=== PATIENT | female | born 1960 | race Caucasian/White ===

== ENCOUNTER → 2019-10-22 | Outpatient (CLI) | payer MEDICARE ==
--- NOTE | 2019-10-26 11:17 | MM ---
Reason for exam: screening (asymptomatic). Last mammogram was performed 1 year and 8 months ago. History: Patient is postmenopausal. Family history of breast cancer in mother at age 80 and breast cancer in maternal grandmother at age 50. Benign stereotactic core biopsy of the right breast, 2001. Physical Findings: A clinical breast exam by your physician is recommended on an annual basis and results should be correlated with mammographic findings. MG Screening Mammo w CAD Bilateral CC and MLO view(s) were taken. Prior study comparison: February 27, 2018, mammogram, performed at [place]. December 17, 2016, mammogram, performed at [place]. December 02, 2016, mammogram, performed at [place]. The breast tissue is almost entirely fat. There are benign appearing round calcifications bilaterally. Previous mammotome biopsy in the right breast. There is chronic nodularity in the right breast. There is chronic nodularity in the left axilla, presumed benign lymph nodes, stable. There is no discrete abnormality. ASSESSMENT: Benign, BI-RAD 2 RECOMMENDATION: Routine screening mammogram of both breasts in 1 year.
== END | disposition home or self-care (01) ==
LOC: RADMAMWWP 14:42
PROVIDERS: ATTEND Physician Assistant
DX: Z12.31 Encounter for screening mammogram for malignant neoplasm of breast (principal)
CPT/HCPCS: 77067

== ENCOUNTER → 2019-11-02 | Outpatient (CLI) | payer MEDICARE ==
[2019-11-02 13:10] VITALS: BP 121/79; PULSE 77; RESP 18; TEMP 98.1
--- NOTE | 2019-11-02 14:13 | P.HPOB ---
History of Present Illness H&P Date: 11/02/19 Chief Complaint: The patient is here for her routine gynecologic exam. This is a 59-year-old with an LMP of 2013. The patient is here to establish with this office. She states it has been about 2-3 years since her last pelvic exam. She is without gynecologic complaints and denies any postmenopausal bleeding. Review of Systems The patient has lost about 100 pounds since her gastric bypass surgery in 2017. This has been intentional. She denies respiratory or cardiac problems. GI: Occasional gastric reflux symptoms. Past Medical History Past Medical History: GERD/Reflux, Hyperlipidemia, Thyroid Disorder Additional Past Medical History / Comment(s): Hypothyroidism, bone spurs, neuropathy. She had hypertension and prediabetes improved with weight loss. 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 History of Any Multi-Drug Resistant Organisms: None Reported Past Surgical History: Bariatric Surgery, Breast Surgery, Section, Cholecystectomy Additional Past Surgical History / Comment(s): 2 sections, gastric sleeve surgery and breast biopsy. Colonoscopy 2019(next 5yrs). Past Psychological History: No Psychological Hx Reported Smoking Status: Never smoker Past Alcohol Use History: None Reported Additional Past Alcohol Use History / Comment(s): History of alcohol heavier use and she quit at age 23. Past Drug Use History: None Reported Additional History: She has been since 2014 and this is her second marriage. 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 - Past Family History Mother Family Medical History: Cancer Additional Family Medical History / Comment(s): Breast cancer in 80s. Maternal grandmother also had breast cancer. Father Family Medical History: Diabetes Mellitus Additional Family Medical History / Comment(s): Several grandparents had hypertension and heart disease. Medications and Allergies Home Medications Medication Instructions Recorded Confirmed Type Atorvastatin [Lipitor] 20 mg PO DAILY 11/02/19 11/02/19 History Cetirizine HCl 10 mg PO DAILY 11/02/19 11/02/19 History Famotidine 20 mg PO BID 11/02/19 11/02/19 History Krill/[place]-3/Dha/Epa/Lipids 1 each PO DAILY 11/02/19 11/02/19 History [Krill Oil 350 mg Softgel] Levothyroxine Sodium [Synthroid] 50 mcg PO DAILY 11/02/19 11/02/19 History Pedi Multivit No.25/Folic Acid 1 tab PO DAILY 11/02/19 11/02/19 History [Flintstones Multivit Chew Tab] Ubidecarenone [Co Q-10] 100 mg PO DAILY 11/02/19 11/02/19 History Vitamin C/Biotin [Hair, Skin and 3 tab PO DAILY 11/02/19 11/02/19 History Nails] diphenhydrAMINE [Benadryl] 25 mg PO HS PRN 11/02/19 11/02/19 History Allergies Allergy/AdvReac Type Severity Reaction Status Date / Time Melon Allergy Unknown Unverified 11/02/19 13:15 Exam Vital Signs Temp Pulse Resp BP Pulse Ox 11/02/19 13:04 98.1 F 77 18 121/79 99 Intake and Output 11/01/19 11/02/19 11/02/19 22:59 06:59 14:59 Other: Weight 95.708 kg Height 5 feet 0 inches, weight 211 pounds, BMI 41.2. This is a well-developed well-nourished heavyset white female who is alert and oriented times 3 in no acute distress. HEENT: Within normal limits. NECK: Supple without mass or thyromegaly. CHEST AND LUNGS: Clear to auscultation. HEART: Regular rate and rhythm. BREASTS: Are without mass or discharge. AXILLARY EXAM: Negative for adenopathy. BACK: Negative for CVA tenderness. ABDOMEN: Soft, nontender, without palpable masses. PELVIC EXAM: Normal external genitalia with mild atrophy. Cervix and vagina appear normal of mild atrophy. There is no unusual discharge. There is no evidence of prolapse. The uterus is midposition to anterior, nongravid size and nontender. There are no palpable adnexal masses or tenderness. RECTAL EXAM: Active vaginal exam is negative for mass or tenderness and is negative for occult blood. EXTREMITIES: Nontender. IMPRESSION: 1. 59-year-old menopausal female with normal gynecologic exam PLAN: 1. Pap smear was performed. 2. Self breast awareness was discussed with the patient. 3. Screening mammogram was done on 10/26/2019 and was benign. 4. Osteoporosis prevention was discussed. I have stressed the importance of adequate calcium, vitamin D and regular exercise. Recommended amounts of calcium and vitamin D were also discussed. Bone density testing will be done today. This will be her first bone density test. 5. She was advised to return in one year for her annual well woman exam.
--- NOTE | 2019-11-10 14:40 | P.PN ---
Progress Note - Text Progress Note Date: 11/10/19 OUTPATIENT FOLLOW-UP NOTE TEST(S)/RESULTS: Test results from 11/02/2019 include negative Pap smear and normal bone density test. METHOD OF NOTIFICATION: The patient was notified by phone. PATIENT COMMENTS: She is happy to hear these results. DIAGNOSIS: Negative Pap smear and normal bone density testing. DISCUSSION: PLAN: She was advised to return in one year for her annual well woman exam.
== END | disposition home or self-care (01) ==
LOC: WWCWWP 12:54
PROVIDERS: ATTEND Obstetrics & Gynecology
DX: Z53.9 Procedure and treatment not carried out, unspecified reason (principal)

== ENCOUNTER → 2019-11-02 | Outpatient (CLI) | payer MEDICARE ==
--- NOTE | 2019-11-02 16:04 | BD ---
EXAMINATION TYPE: Axial Bone Density DATE OF EXAM: 11/02/2019 COMPARISON: NONE CLINICAL HISTORY: Postmenopausal female Height: 59.5 IN Weight: 207 LBS RISK FACTORS HISTORY OF: Family History of Osteoporosis: YES MOTHER Active: YES Diet low in dairy products/other sources of calcium: YES Postmenopausal woman: AGE 54 MEDICATIONS: Thyroid Medications: YES Which medication: Levothyroxine How Lon+ YEARS Additional Medications: LEVOTHYROXINE, HAIR NAIL SKIN , FLINTSTONES COMPLETE, KRILL OIL, COQ10, ATORV ASTATIN, PEPCID, EXAM MEASUREMENTS: Bone mineral densitometry was performed using the [employer] System. Bone mineral density as measured about the Lumbar spine is: ----- L1-L4(G/cm2): 1.418 T Score Values are as follows: ----- L2: 1.5 ----- L3: 1.8 ----- L4: 2.2 ----- L1-L4: 2.0 Bone mineral density BASELINE Bone mineral density about the R hip (g/cm2): 1.161 Bone mineral density about the L hip (g/cm2): 1.107 T Score values are as follows: -----R Neck: 0.9 -----L Neck: 0.5 -----R Total: 2.0 -----L Total: 1.9 Bone mineral density BASELINE IMPRESSION: Normal (Values between +1 and -1 indicate normal bone mass). Consider repeating this study in 5 year s or sooner if there is some new clinical indication. NOTE: T-SCORE=SD OF THE YOUNG ADULT MEAN.
== END | disposition home or self-care (01) ==
LOC: RADBDWWP 12:53
PROVIDERS: ATTEND Family Medicine
DX: M85.80 Other specified disorders of bone density and structure, unspecified site (principal); Z78.0 Asymptomatic menopausal state
CPT/HCPCS: 77080; 82270

== ENCOUNTER → 2021-01-16 | Outpatient (CLI) | payer MEDICARE ==
--- NOTE | 2021-01-18 14:36 | MM ---
Reason for exam: screening (asymptomatic). Last mammogram was performed 1 year and 3 months ago. History: Patient is postmenopausal. Family history of breast cancer in mother at age 80 and breast cancer in maternal grandmother at age 50. Benign stereotactic core biopsy of the right breast, 2001. Physical Findings: A clinical breast exam by your physician is recommended on an annual basis and results should be correlated with mammographic findings. MG 3D Screening Mammo W/Cad Bilateral CC and MLO view(s) were taken. XCCL view(s) were taken of the left breast. Prior study comparison: October 22, 2019, bilateral MG screening mammo w CAD. February 27, 2018, mammogram, performed at [place]. There are scattered fibroglandular densities. Previous mammotome biopsy in the right breast. There is chronic nodularity bilaterally. No significant changes when compared with prior studies. ASSESSMENT: Negative, BI-RAD 1 RECOMMENDATION: Routine screening mammogram of both breasts in 1 year.
== END | disposition home or self-care (01) ==
LOC: RADMAMWWP 14:16
PROVIDERS: ATTEND Family Medicine
DX: Z12.31 Encounter for screening mammogram for malignant neoplasm of breast (principal); Z80.3 Family history of malignant neoplasm of breast; Z98.84 Bariatric surgery status
CPT/HCPCS: 77063; 77067

== ENCOUNTER → 2022-05-24 | Outpatient (CLI) | payer MEDICARE ==
--- NOTE | 2022-05-28 07:53 | MM ---
Reason for Exam: Screening (asymptomatic). Last mammogram was performed 1 year(s) and 5 month(s) ago. Patient History: Menarche at age 10. First Full-Term at age 23. Postmenopausal. 2001, Benign Stereotactic Core Biopsy on the right side. Maternal grandmother had breast cancer, age 50. Mother had breast cancer, age 80. Risk Values: Chiquita 5 year model risk: 3.7%. NCI Lifetime model risk: 14.4%. Prior Study Comparison: 02/27/2018 Screening Mammogram, [place]. 10/22/2019 Bilateral Screening Mammogram, [facility]. 01/16/2021 Bilateral Screening Mammogram, [facility]. Tissue Density: There are scattered fibroglandular densities. Findings: Analyzed By CAD. There is no suspicious group of microcalcifications or new suspicious mass in either breast. Overall Assessment: Negative, BI-RAD 1 Management: Screening Mammogram of both breasts in 1 year. A clinical breast exam by your physician is recommended on an annual basis and results should be correlated with mammographic findings. Electronically signed and approved by: Reginald Rodriguez M.D. Radiologis
== END | disposition home or self-care (01) ==
LOC: RADMAMWWP 13:03
PROVIDERS: ATTEND Family Medicine
DX: Z12.31 Encounter for screening mammogram for malignant neoplasm of breast (principal); Z80.3 Family history of malignant neoplasm of breast; Z78.0 Asymptomatic menopausal state
CPT/HCPCS: 77063; 77067

== ENCOUNTER → 2023-06-27 | Outpatient (CLI) | payer MEDICARE ==
--- NOTE | 2023-06-30 15:31 | MM ---
Reason for Exam: Screening (asymptomatic). Last mammogram was performed 1 year(s) and 1 month(s) ago. Patient History: Menarche at age 10. First Full-Term at age 23. Postmenopausal. Patient has history of breast feeding. 2002, Benign Stereotactic Core Biopsy on the right side. Maternal grandmother had breast cancer, age 50. Mother had breast cancer, age 80. Risk Values: Chiquita 5 year model risk: 3.8%. NCI Lifetime model risk: 14.0%. Prior Study Comparison: 10/22/2019 Bilateral Screening Mammogram, [facility]. 01/16/2021 Bilateral Screening Mammogram, [facility]. 05/24/2022 Bilateral MG 3D screening mammo w/cad, [facility]. Tissue Density: There are scattered fibroglandular densities. Findings: Analyzed By CAD. Pattern appears symmetrical and stable. Multiple lymph nodes appear to be in the axillary regions. Intramammary lymph node may be in the axillary tail. No significant interval change is evident. Core marker is within the right breast. Chronic nodularity is within the mid right breast. No suspicious groups of microcalcifications, spiculated or lobular masses, architectural distortion or other secondary signs of malignancy are mammographically apparent. Overall Assessment: Benign, BI-RAD 2 Management: Screening Mammogram of both breasts in 1 year. A negative mammogram report should not preclude additional follow up of suspicious palpable abnormalities. Patient should continue monthly self breast exam. A clinical breast exam by your physician is recommended on an annual basis and results should be correlated with mammographic findings. Electronically signed and approved by: Sundar Toribio D.O. Radiologis
== END | disposition home or self-care (01) ==
LOC: RADMAMWWP 13:03
PROVIDERS: ATTEND Family Medicine
DX: Z12.31 Encounter for screening mammogram for malignant neoplasm of breast (principal); Z78.0 Asymptomatic menopausal state; Z80.3 Family history of malignant neoplasm of breast
CPT/HCPCS: 77063; 77067

== ENCOUNTER → 2024-06-29 | Outpatient (CLI) | payer MEDICARE ==
--- NOTE | 2024-07-27 09:01 | MM ---
Reason for Exam: Screening (asymptomatic). Last screening mammogram was performed 12 month(s) ago. Patient History: Menarche at age 10. First Full-Term at age 23. Postmenopausal. Patient has history of breast feeding. 2001, Benign Stereotactic Core Biopsy on the right side. Maternal grandmother had breast cancer, age 50. Mother had breast cancer, age 80. Risk Values: Chiquita 5 year model risk: 3.9%. NCI Lifetime model risk: 13.5%. Prior Study Comparison: 01/16/2021 Bilateral Screening Mammogram, [facility]. 05/24/2022 Bilateral MG 3D screening mammo w/cad, [facility]. 06/27/2023 Bilateral MG 3D screening mammo w/cad, [facility]. Tissue Density: The breasts are almost entirely fatty. Findings: Analyzed By CAD. Right breast: There is no suspicious group of microcalcifications or new suspicious mass. Left breast: There is no suspicious group of microcalcifications or new suspicious mass. Overall Assessment: Negative, BI-RAD 1 Management: Screening Mammogram of both breasts in [address] [facility] will attempt to contact patient to return for supplemental views and ultrasound if indicated. Patient should continue monthly self-breast exams. A clinical breast exam by your physician is recommended on an annual basis. This exam should not preclude additional follow-up of suspicious palpable abnormalities. Note on Chiquita scores and lifetime risk: 1. A Chiquita score greater than 3% is considered moderate risk. If this is the case, consider specialist referral to assess eligibility for a risk reducing agent. 2. If overall lifetime risk for the development of breast cancer is 20% or higher, the patient may qualify for future screening with alternating mammogram and breast MRI. Electronically signed and approved by: Sterling Cifuentes DO
== END | disposition home or self-care (01) ==
LOC: RADMAMWWP 09:42
PROVIDERS: ATTEND Family Medicine
DX: Z12.31 Encounter for screening mammogram for malignant neoplasm of breast (principal); Z78.0 Asymptomatic menopausal state; Z80.3 Family history of malignant neoplasm of breast
CPT/HCPCS: 77067; 85610; 85730

== ENCOUNTER 2024-08-30 09:31 | Day surgery (SDC) | payer MEDICARE ==
--- NOTE | 2024-08-30 07:03 | P.GSHP ---
History of Present Illness H&P Date: 08/30/24 CHIEF COMPLAINT: GERD and colon screen HISTORY OF PRESENT ILLNESS: The patient is a 65-year-old female who presents with gastroesophageal reflux disease and need for colon screen. Upper and lower endoscopy were offered for further evaluation and management. PAST MEDICAL HISTORY: Please see list. PAST SURGICAL HISTORY: Please see list. MEDICATIONS: Please see list. ALLERGIES: Please see list. SOCIAL HISTORY: No illicit drug use FAMILY HISTORY: No reports of Crohn disease or ulcerative colitis. REVIEW OF ORGAN SYSTEMS: CONSTITUTIONAL: No reports of fevers or chills. GI: Denies any blood in stools or constipation. PHYSICAL EXAM: VITAL SIGNS: Stable GENERAL: Well-developed pleasant in no acute distress. HEENT: No scleral icterus. Extraocular movements grossly intact. Moist buccal mucosa. NECK: Supple without lymphadenopathy. CHEST: Unlabored respirations. Equal bilateral excursions. CARDIOVASCULAR: Regular rate and rhythm. Distal 2+ pulses. ABDOMEN: Soft, nondistended. MUSCULOSKELETAL: No clubbing, cyanosis, or edema. ASSESSMENT: 1. Gastroesophageal reflux disease 2. Colon screen. PLAN: 1. Recommend proceeding with an upper and lower endoscopy Past Medical History Past Medical History: GERD/Reflux, Hyperlipidemia, Skin Disorder, Thyroid Disorder Additional Past Medical History / Comment(s): Hashimotos Hypothyroidism, bone spurs, neuropathy. She had hypertension and prediabetes improved with weight loss. 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 childhood asthma, itchy bumps contact dermatitis unknown cause History of Any Multi-Drug Resistant Organisms: None Reported Past Surgical History: Bariatric Surgery, Breast Surgery, Section, Cholecystectomy Additional Past Surgical History / Comment(s): 2 sections, gastric sleeve surgery and breast biopsy. Colonoscopy 2019(next 5yrs). egd, Past Anesthesia/Blood Transfusion Reactions: No Reported Reaction Smoking Status: Never smoker - Past Family History Mother Family Medical History: Cancer Additional Family Medical History / Comment(s): Breast cancer in 80s. Maternal grandmother also had breast cancer. Father Family Medical History: Diabetes Mellitus Additional Family Medical History / Comment(s): Several grandparents had hypertension and heart disease. Medications and Allergies Home Medications Medication Instructions Recorded Confirmed Type Atorvastatin [Lipitor] 20 mg PO DAILY 11/02/19 08/26/24 History Cetirizine HCl 10 mg PO DAILY 11/02/19 08/26/24 History Krill/[place]-3/Dha/Epa/Lipids 1 each PO DAILY 11/02/19 08/26/24 History [Krill Oil 350 mg Softgel] Levothyroxine Sodium [Synthroid] 88 mcg PO DAILY 11/02/19 08/26/24 History Ubidecarenone [Co Q-10] 100 mg PO DAILY 11/02/19 08/26/24 History Biotin [Bxhj-Dihm-Fioqb] 10,000 mcg PO DAILY 06/23/24 08/26/24 History Cholecalciferol (Vitamin D3) 100 mcg PO DAILY 06/23/24 08/26/24 History [Vitamin D3 (50 Mcg = 2000 Iu)] Gabapentin 600 mg PO HS 06/23/24 08/26/24 History Sucralfate [Carafate] 1 gm PO TID 06/23/24 08/26/24 History Allergies Allergy/AdvReac Type Severity Reaction Status Date / Time Melon Allergy Unknown Unverified 08/26/24 08:48
[2024-08-30 09:53] VITALS: RESP 16; TEMP 97.7
[2024-08-30] MEDS: IV FLUID CONTINUATION 1,000 ML IV ONE (10:05)
[2024-08-30] MEDS: LACTATED RINGERS 1,000 ML IV SCH (10:11)
[2024-08-30] MEDS: LIDOCAINE 1% (10MG/ML) FOR IV START INTRADERMA PRN (10:11)
[2024-08-30] MEDS ORDERED: PROPOFOL 10 MG/ML 20 ML VIAL IV ONE (10:36)
[2024-08-30] MEDS ORDERED: LIDOCAINE 2% (PF) 20 MG/ML 5 ML VIAL ONE (10:36)
[2024-08-30 11:28] VITALS: BP 134/65; PULSE 71
--- NOTE | 2024-08-30 18:20 | P.PCN ---
Date of Procedure: 08/30/24 Description of Procedure: PREOPERATIVE DIAGNOSIS: Dysphagia Status post sleeve gastrectomy. Gastroesophageal reflux disease. POSTOPERATIVE DIAGNOSIS: Dysphagia Status post sleeve gastrectomy. Gastroesophageal reflux disease. Erosive esophagitis, chronic. Chronic superficial gastritis. OPERATION: Esophagogastroduodenoscopy with cold forceps biopsies along the esophagus, duodenum and antrum. SURGEON: Linda Quiroz MD ANESTHESIA: MAC. INDICATIONS: The patient is a 64-year-old female who presents with a history of sleeve gastrectomy with gastroesophageal reflux disease and dysphagia. She is over 5 years out from her bariatric procedure. Benefits and risks of the procedure were described. Informed consent was obtained. DESCRIPTION: The patient was brought into the endoscopy suite and laid in the left lateral decubitus position. An Olympus gastroscope was passed along the posterior oropharynx down to the distal esophagus where the squamocolumnar junction was at 37 centimeters from the incisors remarkable for chronic erosive esophagitis, LA grade C without ulceration. The sleeve reservoir was within normal limits allowing retroflexion of the scope. Chronic gastritis was found along the antrum with cold biopsies obtained. The first through third portion of the duodenum was examined with biopsies obtained. The stomach was desufflated. The patient tolerated the procedure well. FINDINGS: No acute ulceration found along her sleeve. No corkscrewing sleeve gastrectomy. Squamocolumnar junction at 37 cm from the incisors. Gastric reservoir with prior history of sleeve gastrectomy within normal limit LA grade C erosive esophagitis. Biopsies obtained Biopsies obtained of the duodenum Chronic gastritis with biopsies obtained. RECOMMENDATIONS: Recommend esophagram to identify residual hiatal hernia including dysmotility Start omeprazole 40 mg daily for 2 weeks Repeat upper endoscopy with possible dilation for dysphagia not refractory to medical treatment
--- NOTE | 2024-08-30 18:22 | P.PCN ---
Date of Procedure: 08/30/24 Description of Procedure: PREOPERATIVE DIAGNOSIS: Personal history of colon polyp Colonoscopy screening. POSTOPERATIVE DIAGNOSIS: Colonoscopy screening. Diverticulosis, scattered. OPERATION: Colonoscopy to the cecum, ileocecal valve and appendiceal orifice. SURGEON: Linda Quiroz MD. ANESTHESIA: MAC. INDICATIONS: The patient is a 64-year-old female who presents for colonoscopy screening. Last colonoscopy 5 years. Benefits and risks were described and informed consent was obtained. DESCRIPTION OF PROCEDURE: The patient had undergone Suprep. The patient had been brought into the operating room and laid in the left lateral decubitus position. After adequate intravenous sedation, the rectum was examined with 2% lidocaine jelly. External hemorrhoids were encountered. The rectal tone was within normal limits. No lesions were palpated in the rectal vault. An Olympus colonoscope was advanced until the cecum, ileocecal valve and appendiceal orifice were clearly viewed. The prep was fair with residual opacified liquid stool. Scattered diverticulosis was encountered. No colonic polyps were found. No evidence of focal colitis was found. Retroflexion of the scope demonstrated grade 1 internal hemorrhoids without active bleeding or inflammation. The colon was desufflated. The patient had tolerated the procedure well. Withdrawal time was over 6 minutes. FINDINGS: Aronchick preparation quality scale 2+ (1-5) Internal hemorrhoids, grade 1 External prolapsed hemorrhoids, grade 1 No arteriovenous malformations. No adenomatous polyps. No focal colitis. Scattered sigmoid diverticulosis without diverticulitis RECOMMENDATIONS: Lower endoscopy in 5 years, 2028 Recommend 2-day prep Plan - Discharge Summary Discharge Rx Participant: No New Discharge Prescriptions: New Omeprazole [PriLOSEC] 40 mg PO DAILY #14 cap Continue Cetirizine HCl 10 mg PO DAILY Levothyroxine Sodium [Synthroid] 88 mcg PO DAILY Atorvastatin [Lipitor] 20 mg PO DAILY Ubidecarenone [Co Q-10] 100 mg PO DAILY Krill/[place]-3/Dha/Epa/Lipids [Krill Oil 350 mg Softgel] 1 each PO DAILY Biotin [Hofm-Jfrk-Etbmg] 10,000 mcg PO DAILY Sucralfate [Carafate] 1 gm PO TID Cholecalciferol (Vitamin D3) [Vitamin D3 (50 Mcg = 2000 Iu)] 100 mcg PO DAILY Gabapentin 600 mg PO HS Discharge Medication List Atorvastatin [Lipitor] 20 mg PO DAILY 11/02/19 [History] Cetirizine HCl 10 mg PO DAILY 11/02/19 [History] Krill/[place]-3/Dha/Epa/Lipids [Krill Oil 350 mg Softgel] 1 each PO DAILY 11/02/19 [History] Levothyroxine Sodium [Synthroid] 88 mcg PO DAILY 11/02/19 [History] Ubidecarenone [Co Q-10] 100 mg PO DAILY 11/02/19 [History] Biotin [Vnid-Qlgx-Kglds] 10,000 mcg PO DAILY 06/23/24 [History] Cholecalciferol (Vitamin D3) [Vitamin D3 (50 Mcg = 2000 Iu)] 100 mcg PO DAILY 06/23/24 [History] Gabapentin 600 mg PO HS 06/23/24 [History] Sucralfate [Carafate] 1 gm PO TID 06/23/24 [History] Omeprazole [PriLOSEC] 40 mg PO DAILY #14 cap 08/30/24 [Rx] [facility]Ref[facility] [place] [place] [facility] [place] [facility]24 3:30 pm Patient Instructions/Handouts: *Surgery [facility] - (Anesthesia) Discharge Instructions Outpatient Surgery, Gastritis (DC), Diverticulosis (DC), Diet for Stomach Ulcers and Gastritis (GEN), Diverticulitis Diet (ED) Discharge Disposition: HOME SELF-CARE
== END 2024-08-30 12:13 | disposition home or self-care (01) ==
LOC: ORWHC2ENDO 09:31
PROVIDERS: ATTEND Surgery Plastic and Reconstructive Surgery
DX: Z12.11 Encounter for screening for malignant neoplasm of colon (principal); K64.1 Second degree hemorrhoids; K64.4 Residual hemorrhoidal skin tags; K21.00 Gastro-esophageal reflux disease with esophagitis, without bleeding; K57.30 Diverticulosis of large intestine without perforation or abscess without bleeding; K29.30 Chronic superficial gastritis without bleeding; K22.10 Ulcer of esophagus without bleeding; I10 Essential (primary) hypertension; E78.5 Hyperlipidemia, unspecified; E07.9 Disorder of thyroid, unspecified; Z79.890 Hormone replacement therapy; Z79.899 Other long term (current) drug therapy; Z90.49 Acquired absence of other specified parts of digestive tract; Z98.84 Bariatric surgery status; Z86.0100 Personal history of colon polyps, unspecified
CPT/HCPCS: 88305; 88313; 43239; J2704; J2003; G0105

== ENCOUNTER → 2024-09-15 | Outpatient (CLI) | payer MEDICARE ==
--- NOTE | 2024-09-15 10:45 | FL ---
EXAMINATION TYPE: FL barium swallow DATE OF EXAM: 09/15/2024 CLINICAL INDICATION: 64-year-old female R13.10, dysphagia. Patient with history of gastric sleeve in 2017 with acid reflux. COMPARISON: None Total Fluoroscopy Time: 58 seconds Total DAP: 30 mGycm2 31 images obtained. FINDINGS: Single contrast technique was utilized due to patient's previous bariatric surgery. The swallowing mechanism is normal and hypopharyngeal anatomy is preserved. The cervical and thoracic portions have a normal course and caliber and normal motility. The mucosa is normal and no persistent filling defect is encountered allowing for single contrast toby hnique. There is a small hiatal hernia present. Prompt passage of contrast from the esophagus into the stomach with post surgical change of sleeve ga strectomy demonstrated. Additional cholecystectomy clips. IMPRESSION: 1. Small hiatal hernia. 2. Status post sleeve gastrectomy. 3. No stricture or appreciable mucosal abnormality allowing for single contrast technique. [facility], , 09/15/2024 10:43 AM
== END | disposition home or self-care (01) ==
LOC: RADFLMAIN 08:15
PROVIDERS: ATTEND Surgery Plastic and Reconstructive Surgery
CPT/HCPCS: 74220

== ENCOUNTER → 2024-09-22 | Outpatient (CLI) | payer MEDICARE ==
[2024-09-22 16:48] VITALS: BP 139/81; PULSE 75; RESP 16; TEMP 98.3; BMI 41.8
--- NOTE | 2024-09-22 17:13 | P.BASOAP ---
Subjective Progress Note Date: 09/22/24 She reports resolution of dysphagia with omeprazole and carate. She has memory problems. She may need additional refills. NO stretch needed. Bypass is a last resort. Needs labs. FU later. Synthroid taken appropriately. Objective - Vital Signs Vital signs: Vital Signs Temp 98.3 F 09/22/24 16:36 Pulse 75 09/22/24 16:36 Resp 16 09/22/24 16:36 BP 139/81 09/22/24 16:36 Pulse Ox FiO2 Intake & Output 09/21/24 09/22/24 09/22/24 18:59 06:59 18:59 Weight 93.894 kg Assessment/Plan Plan: Date: 09/22/24 Initial Weight: Initial BMI: Current Weight: 93.894 kg Current BMI: 41.8 Type of Surgery: Total Volume in Band: Previous Volume: Volume Removed: Volume Added: Band Size:
== END ==
LOC: BARWHC3 15:14
PROVIDERS: ATTEND Surgery Plastic and Reconstructive Surgery
DX: E66.01 Morbid (severe) obesity due to excess calories (principal); Z68.41 Body mass index [BMI] 40.0-44.9, adult; Z91.018 Allergy to other foods
CPT/HCPCS: 99211

== ENCOUNTER → 2024-09-23 | Outpatient (CLI) | payer MEDICARE ==
[2024-09-23 09:47] LABS: INR 0.9 (<1.2); Partial Thromboplastin Time 22.4 sec (22.0-30.0)
[2024-09-23 15:35] LABS: HGB 14.5 g/dL (12.0-15.0); MCH 29.9 pg (27.0-32.0); MCHC 31.5 g/dL (32.0-37.0); MCV 94.8 FL (80.0-97.0); Mean Platelet Volume 11.7 FL (9.5-12.2); NRBC Per 100 WBC 0 X 10*3/uL (0.00-0.01); Platelet Count 254 X 10*3/uL (140-440); RBC 4.85 X 10*6/uL (4.10-5.20); RDW 14.1 % (11.5-14.5); WBC 7.36 X 10*3/uL (4.50-10.00)
[2024-09-23 16:21] LABS: Chol/HDL Ratio 2.79 Ratio
[2024-09-23 16:22] LABS: % Iron Saturation 34.27 (12.00-45.00); ALT 10 U/L (8-44); AST 18 U/L (13-35); Albumin 4.1 g/dL (3.8-4.9); Albumin/Globulin Ratio 1.64 Ratio (1.60-3.17); Alkaline Phosphatase 97 U/L (41-126); Blood Urea Nitrogen 23.1 mg/dL (9.0-27.0); Calcium 9.9 mg/dL (8.7-10.3); Carbon Dioxide 25.5 mmol/L (21.6-31.8); Chloride 106 mmol/L (96-109); Globulin 2.5 g/dL (1.6-3.3); Glucose 84 mg/dL (70-110); Iron 122 UG/DL (50-170); LDL Cholesterol,Calculated 87.6 mg/dL (0.0-131.0); Magnesium 1.7 mg/dL (1.5-2.4); Phosphorus 3.3 mg/dL (2.4-5.1); Potassium 4.2 mmol/L (3.5-5.5); Sodium 142 mmol/L (135-145); Total Bilirubin 0.7 mg/dL (0.3-1.2); Total Iron Binding Capacity 356 UG/DL (228-460); Total Protein 6.6 g/dL (6.2-8.2)
[2024-09-23 22:02] LABS: Prealbumin 23.9 mg/dL (18.0-42.0)
[2024-09-24 11:48] LABS: Zinc, Serum 106 ug/dL (60-130)
[2024-09-27 11:00] LABS: Vit B1(Thiamine) 74 ug/L (38-122)
[2024-09-28 07:46] LABS: Vitamin A 54 ug/dL (38-106)
[2024-10-04 19:42] LABS: Selenium 114 mcg/L (63-160)
== END | disposition home or self-care (01) ==
LOC: LABWHC1 08:33
PROVIDERS: ATTEND Surgery Plastic and Reconstructive Surgery
DX: E89.1 Postprocedural hypoinsulinemia (principal); E66.01 Morbid (severe) obesity due to excess calories; D50.8 Other iron deficiency anemias; E44.0 Moderate protein-calorie malnutrition; E55.9 Vitamin D deficiency, unspecified; K74.1 Hepatic sclerosis; N19 Unspecified kidney failure; E44.1 Mild protein-calorie malnutrition; E45 Retarded development following protein-calorie malnutrition; T56.894A Toxic effect of other metals, undetermined, initial encounter; K50.90 Crohn's disease, unspecified, without complications
CPT/HCPCS: 36415; 80053; 80061; 82306; 82525; 82607; 82728; 82746; 83036; 83540; 83550; 83735; 83970; 84100; 84134; 84255; 84425; 84443; 84590; 84630; 85027; 85610; 85730; 93005

== ENCOUNTER → 2024-10-13 | Outpatient (CLI) | payer MEDICARE ==
[2024-10-13 14:59] VITALS: BP 121/80; PULSE 74; RESP 16; TEMP 97.7; BMI 42.0
--- NOTE | 2024-10-13 15:30 | P.BASOAP ---
Subjective Progress Note Date: 10/13/24 She has acid reflux. She did not get her prescription. She reports reflux is back. Wants to see nutrition list. New prescription for omeprazole. Will proceed with EGD with dilation. Objective - Vital Signs Vital signs: Vital Signs Temp 97.7 F 10/13/24 14:45 Pulse 74 10/13/24 14:45 Resp 16 10/13/24 14:45 BP 121/80 10/13/24 14:45 Pulse Ox FiO2 Intake & Output 10/12/24 10/13/24 10/13/24 18:59 06:59 18:59 Weight 94.347 kg Assessment/Plan Plan: Date: 10/13/24 Initial Weight: Initial BMI: Current Weight: 94.347 kg Current BMI: 42.0 Type of Surgery: Total Volume in Band: Previous Volume: Volume Removed: Volume Added: Band Size:
== END ==
LOC: BARWHC3 14:14
PROVIDERS: ATTEND Surgery Plastic and Reconstructive Surgery
DX: E66.01 Morbid (severe) obesity due to excess calories (principal); Z68.41 Body mass index [BMI] 40.0-44.9, adult; Z91.018 Allergy to other foods
CPT/HCPCS: 99211

== ENCOUNTER → 2024-10-20 | Day surgery (SDC) | payer MEDICARE ==
[~2024-10-20] MED LIST: LIDOCAINE 1% (10MG/ML) FOR IV START INTRADERMA PRN; LIDOCAINE 1% INJ 10MG/ML (20 ML MDV) ONE; PROPOFOL 10 MG/ML 20 ML VIAL IV ONE
[2024-10-20 10:41] VITALS: TEMP 97.1
[2024-10-20] MEDS: LACTATED RINGERS 1,000 ML IV SCH (10:51)
[2024-10-20] MEDS: IV FLUID CONTINUATION 1,000 ML IV ONE (10:52)
--- NOTE | 2024-10-20 13:14 | P.GSHP ---
History of Present Illness H&P Date: 10/20/24 CHIEF COMPLAINT: Esophageal stricture HISTORY OF PRESENT ILLNESS: The patient is a 64-year-old female who presents reports dysphagia. Upper endoscopy was offered for further evaluation and management. PAST MEDICAL HISTORY: Please see list. PAST SURGICAL HISTORY: Please see list. MEDICATIONS: Please see list. ALLERGIES: Please see list. SOCIAL HISTORY: No illicit drug use FAMILY HISTORY: No reports of Crohn disease or ulcerative colitis. REVIEW OF ORGAN SYSTEMS: CONSTITUTIONAL: No reports of fevers or chills. GI: Denies any blood in stools or constipation. PHYSICAL EXAM: VITAL SIGNS: Stable GENERAL: Well-developed and pleasant in no acute distress. HEENT: No scleral icterus. Extraocular movements grossly intact. Moist buccal mucosa. NECK: Supple without lymphadenopathy. CHEST: Unlabored respirations. Equal bilateral excursions. CARDIOVASCULAR: Regular rate and rhythm. Distal 2+ pulses. ABDOMEN: Soft, nondistended. MUSCULOSKELETAL: No clubbing, cyanosis, or edema. ASSESSMENT: 1. Esophageal stricture PLAN: 1. Recommend proceeding with an upper endoscopy with rigid dilators. Past Medical History Past Medical History: GERD/Reflux, Hyperlipidemia, Skin Disorder, Thyroid Disorder Additional Past Medical History / Comment(s): Hashimotos Hypothyroidism, bone spurs, neuropathy. hx hypertension and prediabetes improved with weight loss. Childhood asthma; itchy bumps contact dermatitis unknown cause, currently stable since 2012 History of Any Multi-Drug Resistant Organisms: None Reported Past Surgical History: Bariatric Surgery, Breast Surgery, Section, Cholecystectomy Additional Past Surgical History / Comment(s): 2 sections, gastric sleeve surgery, right breast benign stereotactic biopsy. Colonoscopy. EGD. Past Anesthesia/Blood Transfusion Reactions: No Reported Reaction, Family History of Problems w/ Anesthesia Additional Past Anesthesia/Blood Transfusion Reaction / Comment(s): mother PONV Smoking Status: Never smoker - Past Family History Mother Family Medical History: Cancer Additional Family Medical History / Comment(s): Breast cancer in 80s. Maternal grandmother also had breast cancer. Father Family Medical History: Diabetes Mellitus Additional Family Medical History / Comment(s): Several grandparents had hypertension and heart disease. Medications and Allergies Home Medications Medication Instructions Recorded Confirmed Type Atorvastatin [Lipitor] 20 mg PO DAILY 11/02/19 10/20/24 History Cetirizine HCl 10 mg PO DAILY 11/02/19 10/20/24 History Krill/[place]-3/Dha/Epa/Lipids 1 each PO DAILY 11/02/19 10/20/24 History [Krill Oil 350 mg Softgel] Levothyroxine Sodium [Synthroid] 88 mcg PO DAILY 11/02/19 10/20/24 History Ubidecarenone [Co Q-10] 100 mg PO DAILY 11/02/19 10/20/24 History Biotin [Inmp-Xoqn-Ngler] 10,000 mcg PO DAILY 06/23/24 10/20/24 History Cholecalciferol (Vitamin D3) 100 mcg PO DAILY 06/23/24 10/20/24 History [Vitamin D3 (50 Mcg = 2000 Iu)] Gabapentin 600 mg PO HS 06/23/24 10/20/24 History Magnesium Oxide [Mag-Ox] 1 tab PO HS 10/13/24 10/20/24 History Omeprazole [PriLOSEC] 40 mg PO DAILY #90 cap 10/13/24 10/20/24 Rx Allergies Allergy/AdvReac Type Severity Reaction Status Date / Time Melon Allergy Unknown Verified 10/20/24 10:48 Surgical - Exam Vital Signs Temp Pulse Resp BP Pulse Ox 97.1 F L 71 18 144/70 98 10/20/24 10:37 10/20/24 10:37 10/20/24 10:37 10/20/24 10:37 10/20/24 10:37
[2024-10-20 13:15] VITALS: RESP 14
--- NOTE | 2024-10-20 13:18 | P.PCN ---
Date of Procedure: 10/20/24 Description of Procedure: PREOPERATIVE DIAGNOSIS: Dysphagia. Gastroesophageal reflux disease. s/p sleeve gastrectomy. POSTOPERATIVE DIAGNOSIS: Dysphagia. Gastroesophageal reflux disease. s/p sleeve gastrectomy. Esophageal dysmotility Esophageal obstruction OPERATION: Esophagogastroduodenoscopy with rigid dilation, 51-Malaysian SURGEON: Linda Quiroz MD ANESTHESIA: MAC. INDICATIONS: The patient is a 64-year-old female who presents with dysphagia, sleeve gastrectomy including gastroesophageal reflux disease. Benefits and risks of the procedure were described. Informed consent was obtained. DESCRIPTION: The patient was brought into the endoscopy suite and laid in the left lateral decubitus position. After a timeout was confirmed, the procedure was initiated. An Olympus gastroscope was passed along the posterior oropharynx down to the distal esophagus where the squamocolumnar junction was unremarkable. Multiple tertiary esophageal contractions were identified consistent with esophageal dysmotility including upper esophageal stricture. The gastric pouch was entered. The antrum was unremarkable. The scope was removed as a guidewire was placed. A guidewire followed by a 51-Malaysian rigid dilator was placed. Dilation went to 51-Malaysian with rigid dilator for 2 minutes. Dilators were removed with guidewire. The upper scope was reinserted. The scope was easily passed without resistance consistent with her esophageal dysmotility. The mucosa was intact. No full-thickness injury was encountered. The GI tract was desufflated. The patient tolerated the procedure well. FINDINGS: Upper esophageal stricture Tertiary esophageal contractions present with esophageal dysmotility dilated LA grade C erosive esophagitis. Rigid dilation 51-Malaysian achieved Sleeve gastrectomy identified RECOMMENDATIONS:. Upper endoscopy as needed Plan - Discharge Summary Discharge Rx Participant: No New Discharge Prescriptions: Continue Cetirizine HCl 10 mg PO DAILY Levothyroxine Sodium [Synthroid] 88 mcg PO DAILY Atorvastatin [Lipitor] 20 mg PO DAILY Ubidecarenone [Co Q-10] 100 mg PO DAILY Krill/[place]-3/Dha/Epa/Lipids [Krill Oil 350 mg Softgel] 1 each PO DAILY Biotin [Fahi-Adlp-Mpwbs] 10,000 mcg PO DAILY Cholecalciferol (Vitamin D3) [Vitamin D3 (50 Mcg = 2000 Iu)] 100 mcg PO DAILY Omeprazole [PriLOSEC] 40 mg PO DAILY #90 cap Gabapentin 600 mg PO HS Magnesium Oxide [Mag-Ox] 1 tab PO HS Discharge Medication List Atorvastatin [Lipitor] 20 mg PO DAILY 11/02/19 [History] Cetirizine HCl 10 mg PO DAILY 11/02/19 [History] Krill/[place]-3/Dha/Epa/Lipids [Krill Oil 350 mg Softgel] 1 each PO DAILY 11/02/19 [History] Levothyroxine Sodium [Synthroid] 88 mcg PO DAILY 11/02/19 [History] Ubidecarenone [Co Q-10] 100 mg PO DAILY 11/02/19 [History] Biotin [Vqln-Xbup-Squqx] 10,000 mcg PO DAILY 06/23/24 [History] Cholecalciferol (Vitamin D3) [Vitamin D3 (50 Mcg = 2000 Iu)] 100 mcg PO DAILY 06/23/24 [History] Gabapentin 600 mg PO HS 06/23/24 [History] Magnesium Oxide [Mag-Ox] 1 tab PO HS 10/13/24 [History] Omeprazole [PriLOSEC] 40 mg PO DAILY #90 cap 10/13/24 [Rx] [facility]Ref[facility] [place] [facility] - 11/10/24 3:00 pm Patient Instructions/Handouts: Esophageal Dilation (DC) Activity/Diet/Wound Care/Special Instructions: Warm beverages prior to eating meals Discharge Disposition: HOME SELF-CARE
[2024-10-20 13:28] VITALS: BP 138/84; PULSE 68
== END | disposition home or self-care (01) ==
LOC: ORWHC2ENDO 10:18
PROVIDERS: ATTEND Surgery Plastic and Reconstructive Surgery
DX: K22.2 Esophageal obstruction (principal); K22.4 Dyskinesia of esophagus; K21.00 Gastro-esophageal reflux disease with esophagitis, without bleeding; E78.5 Hyperlipidemia, unspecified; E03.9 Hypothyroidism, unspecified; G62.9 Polyneuropathy, unspecified; I10 Essential (primary) hypertension; F41.9 Anxiety disorder, unspecified; Z79.890 Hormone replacement therapy; Z98.84 Bariatric surgery status; Z79.899 Other long term (current) drug therapy; Z90.49 Acquired absence of other specified parts of digestive tract
CPT/HCPCS: 43248; J2003; J2704

== ENCOUNTER → 2025-01-26 | Outpatient (CLI) | payer MEDICARE ==
[2025-01-26 13:10] VITALS: BP 122/82; PULSE 83; RESP 16; TEMP 97.5; BMI 43.4
--- NOTE | 2025-01-26 13:55 | P.BASOAP ---
Subjective Progress Note Date: 01/26/25 She lost 7 pounds in 1 month. She is doing better. She is watching encouraging videos. She is doing very well. Has occasional burping. Objective - Vital Signs Vital signs: Vital Signs Temp 97.5 F L 01/26/25 13:08 Pulse 83 01/26/25 13:08 Resp 16 01/26/25 13:08 BP 122/82 01/26/25 13:08 Pulse Ox FiO2 Intake & Output 01/25/25 01/26/25 01/26/25 18:59 06:59 18:59 Weight 97.522 kg Assessment/Plan Plan: Date: 01/26/25 Initial Weight: Initial BMI: Current Weight: 97.522 kg Current BMI: 43.4 Type of Surgery: Vertical Sleeve Gastrectomy Total Volume in Band: Previous Volume: Volume Removed: Volume Added: Band Size:
== END ==
LOC: BARWHC3 12:53
PROVIDERS: ATTEND Surgery Plastic and Reconstructive Surgery
DX: E66.01 Morbid (severe) obesity due to excess calories (principal); Z68.41 Body mass index [BMI] 40.0-44.9, adult; Z91.018 Allergy to other foods
CPT/HCPCS: 99211